=== PATIENT | female | born 1940 | race Caucasian/White ===

== ENCOUNTER 2020-11-06 10:47 | Emergency (ER) | payer OTHER, MEDICARE ==
--- NOTE | 2020-11-06 14:13 | EDPHYS ---
Physician Documentation [facility] Name: Lexie Robles Age: 80 yrs Sex: Female : 1940 Arrival Date: 11/06/2020 Time: 10:48 Bed 11 Private MD: aJmari Harrell T ED Physician Clive Castillo HPI: 11/06 14:10 This 80 yrs old Female presents to ER via Ambulatory with complaints of kb Vaginal Problem. 14:11 The patient presents with ball coming out of vagina. Onset: The symptoms/episode kb began/occurred 1 week(s) ago. Modifying factors: The symptoms are alleviated by nothing, the symptoms are aggravated by nothing. Associated signs and symptoms: The patient has no apparent associated signs or symptoms. Severity of symptoms: At their worst the symptoms were very mild, in the emergency department the symptoms are unchanged. The patient has not experienced similar symptoms in the past. The patient has not recently seen a physician. Pt states she felt a small ball, the size of a marble, coming out of vagina. States it goes back in on it's own. No pain, tenderness. . Historical: - Allergies: 11:26 No Known Allergies; hb - Immunization history:: Client reports receiving the 2nd dose of the Covid vaccine, Date received: May 15, 2020. - Social history:: Smoking status: Patient denies any tobacco usage or history of. ROS: 14:08 Constitutional: Negative for fever, chills, and weight loss. kb 14:08 : Positive for ball coming out of vagina intermittently for a week. 14:08 All other systems are negative. Exam: 14:10 Constitutional: This is a well developed, well nourished patient who is awake, alert, kb and in no acute distress. Head/Face: Normocephalic, atraumatic. ENT: Moist Mucous membranes Respiratory: Respirations even and unlabored. No increased work of breathing, no retractions or nasal flaring. Abdomen/GI: Soft, non-tender. No distention Female : Normal external genitalia. Skin: Warm, dry with normal turgor. Normal color. MS/ Extremity: Pulses equal, no cyanosis. Neurovascular intact. Full, normal range of motion. Neuro: Awake and alert, GCS 15, oriented to person, place, time, and situation. Moves all extremities. Normal gait. Psych: Awake, alert, with orientation to person, place and time. Behavior, mood, and affect are within normal limits. 14:10 Abdomen/GI: Rectal exam: swelling, is not appreciated, tenderness, is not appreciated, fecal impaction, is not appreciated, the exam is chaperoned by the nurse, rectal prolapse, able to reduce with ease and no pain. Vital Signs: 11:25 BP 142 / 85; Pulse 68; Resp 16; Temp 97.8; Pulse Ox 97% on R/A; Weight 58.51 kg; Height hb 5 ft. 1 in. (154.94 cm); Pain 0/10; 11:25 Body Mass Index 24.37 (58.51 kg, 154.94 cm) hb MDM: 13:41 Patient medically screened. kb 14:07 Data reviewed: vital signs, nurses notes. Data interpreted: Pulse oximetry: on room air kb is 97 %. Interpretation: normal. Counseling: I had a detailed discussion with the patient and/or guardian regarding: the historical points, exam findings, and any diagnostic results supporting the discharge/admit diagnosis, the need for outpatient follow up, a general surgeon, to return to the emergency department if symptoms worsen or persist or if there are any questions or concerns that arise at home. 11/06 13:42 Order name: Pelvic Exam Setup; Complete Time: 14:15 kb Administered Medications: No medications were administered Disposition: 11/07 07:45 Co-signature as Attending Physician, Clive Castillo MD I agree with the assessment and krishna plan of care. Disposition Summary: 11/06/20 14:12 Discharge Ordered Location: Home kb Condition: Stable kb Diagnosis - Rectal prolapse kb Followup: kb - With: Emergency Department - When: As needed - Reason: Worsening of condition Followup: kb - With: Private Physician - When: 2 - 3 days - Reason: Recheck today's complaints, Continuance of care, Re-evaluation by your physician Discharge Instructions: - Discharge Summary Sheet kb - Rectal Prolapse, Adult kb Forms: - Medication Reconciliation Form kb - Thank You Letter kb - Antibiotic Education kb - Prescription Opioid Use kb Signatures: Charlotte Daniel, DONATO FOREMAN-Clive Ignacio MD MD cha Baxter, Heather RN RN Corrections: (The following items were deleted from the chart) 11/06 11:27 11:26 Immunization history: Client reports receiving the 2nd dose of the Covid vaccine, hb hb
--- NOTE | 2020-11-06 14:13 | ER ---
Nurse's Notes [facility] Name: Lexie Robles Age: 80 yrs Sex: Female : 1940 Arrival Date: 11/06/2020 Time: 10:48 Bed 11 Private MD: Jamari Harrell T Diagnosis: Rectal prolapse Presentation: 11/06 11:25 Chief complaint: Painless lump the size of a marble near vagina x 1 week. Coronavirus hb screen: At this time, the client does not indicate any symptoms associated with coronavirus-19. Ebola Screen: No symptoms or risks identified at this time. Initial Sepsis Screen: Does the patient meet any 2 criteria? No. Patient's initial sepsis screen is negative. Does the patient have a suspected source of infection? No. Patient's initial sepsis screen is negative. Risk Assessment: Do you want to hurt yourself or someone else? Patient reports no desire to harm self or others. Onset of symptoms was October 30, 2020. 11:25 Method Of Arrival: Ambulatory hb 11:25 Acuity: RAYMOND 3 hb Historical: - Allergies: 11:26 No Known Allergies; hb - Immunization history:: Client reports receiving the 2nd dose of the Covid vaccine, Date received: May 15, 2020. - Social history:: Smoking status: Patient denies any tobacco usage or history of. Vital Signs: 11:25 BP 142 / 85; Pulse 68; Resp 16; Temp 97.8; Pulse Ox 97% on R/A; Weight 58.51 kg; Height hb 5 ft. 1 in. (154.94 cm); Pain 0/10; 11:25 Body Mass Index 24.37 (58.51 kg, 154.94 cm) hb ED Course: 10:48 Patient arrived in ED. as 10:48 Jamari Harrell MD is Private Physician. as 11:26 Triage completed. hb 11:26 Arm band placed on. hb 13:41 Charlotte Daniel FNP-C is PHCP. kb 13:41 Clive Castillo MD is Attending Physician. kb 14:15 Caro Jarquin, JOSEFINA is Primary Nurse. iw Administered Medications: No medications were administered Outcome: 14:12 Discharge ordered by . kb 14:25 Patient left the ED. iw Signatures: Charlotte Daniel FNP-C FNP-Mariella Garza as Caro Jarquin, RN RN iw Sarah Huggins RN RN hb Corrections: (The following items were deleted from the chart) 11:27 11:26 Immunization history: Client reports receiving the 2nd dose of the Covid vaccine, hb hb
[2020-11-06 14:29] VITALS: BP 142/85; TEMP 97.8; O2SAT 97
== END 2020-11-06 14:25 | disposition home or self-care (01) ==
LOC: ER 10:47
DX: K62.3 Rectal prolapse (principal)
CPT/HCPCS: 99281

== ENCOUNTER 2021-03-31 17:21 | Emergency (ER) | payer OTHER, MEDICARE ==
--- NOTE | 2021-03-31 18:03 | RAD REPORT ---
EXAM DESCRIPTION: CT - Head C Spine Mpr Wo Con - 03/31/2021 5:50 pm CLINICAL HISTORY: Head and neck injury status post fall. Head and neck pain COMPARISON: 2016 TECHNIQUE: Computed axial tomography of the head and cervical spine was obtained. Sagittal and coronal reconstruction was performed. All CT scans are performed using dose optimization technique as appropriate and may include automated exposure control or mA/KV adjustment according to patient size. FINDINGS: Right posterior scalp swelling. An intracranial bleed is not seen. The ventricles are normal in caliber. An extra-axial fluid collect ion is not noted.Fluid within the visualized sinuses and mastoids is not seen A cervical fracture is not visualized. No dislocation is noted. IMPRESSION: No acute intracranial abnormality is seen. A cervical fracture is not visualized. If the patient continues to have symptoms to suggest intracra nial /spinal cord pathology then MRI would be recommended
--- NOTE | 2021-03-31 18:55 | RAD REPORT ---
EXAM DESCRIPTION: Zheng Single View03/31/2021 6:42 pm CLINICAL HISTORY: Dizziness COMPARISON: 2016 FINDINGS: The lungs appear clear of acute infiltrate. The heart is normal size IMPRESSION: No acute abnormalities displayed
[2021-03-31 18:56] LABS: Absolute Lymphocytes (CBC) 1.3 K/uL (0.7-4.9); Hematocrit 38.9 % (36.0-45.0); Lymphocytes % 18.7 % (15.3-44.8); MPV 9.4 fL (7.6-11.3); RBC Red Blood Cell Count 4.19 M/uL (3.86-4.86)
[2021-03-31 19:05] LABS: Protime INR 1.01
[2021-03-31 19:16] LABS: ALT/SGPT 17 U/L (12-78); AST/SGOT 13 U/L (15-37); Albumin 3.2 g/dL (3.4-5.0); Alkaline Phosphatase 89 U/L (45-117); BUN Blood Urea Nitrogen 10 mg/dL (7-18); Bicarbonate 26 mmol/L (21-32); Bilirubin Direct < 0.1 mg/dL (0-0.2); Bilirubin Total 0.2 mg/dL (0.2-1.0); Glucose Level 79 mg/dL (74-106); Magnesium 2.1 mg/dL (1.8-2.4); NT PRO-BNP 361 pg/mL (<450); Protein, Total 6.8 g/dL (6.4-8.2); Sodium Level 139 mmol/L (136-145)
[2021-03-31 20:57] LABS: Urine Blood Negative (Negative); Urine Glucose Negative (Negative); Urine Protein Negative (Negative)
[2021-03-31 21:34] LABS: Urine Bacteria <20 /HPF (<20); Urine RBC <5 /HPF (NONE SEEN)
--- NOTE | 2021-03-31 21:39 | EDPHYS ---
Physician Documentation [facility] Name: Lexie Robles Age: 81 yrs Sex: Female : 1940 Arrival Date: 03/31/2021 Time: 17:24 Bed 19 Private MD: ED Physician Molina Awad HPI: 03/31 17:39 This 81 yrs old Female presents to ER via EMS with complaints of Fall Injury. pm1 17:39 Details of fall: The patient fell from an upright position, while standing, patient was pm1 putting on her jacket over her head and then she started stumbling backwards and fell down hitting the right side of her head on the floor. Patient is not complaining of pain to any other location. No neck pain, LOC. Onset: The symptoms/episode began/occurred just prior to arrival. Associated injuries: The patient sustained injury to the head, contusion, swelling. Severity of symptoms: in the emergency department the symptoms are unchanged. The patient has experienced similar episodes in the past, a few times, last fell about 1 month ago. Patient reports dizziness on and off for the past month. No dizziness before or after fall today. The patient has not recently seen a physician, the patient's primary care provider is Dr. Harrell. Historical: - Allergies: 18:58 No Known Allergies; bp - Immunization history:: Adult Immunizations up to date, Client reports receiving the 2nd dose of the Covid vaccine. - Social history:: Smoking status: unknown. ROS: 17:39 Constitutional: Negative for fever, chills, and weight loss, Cardiovascular: Negative pm1 for chest pain, palpitations, and edema, Respiratory: Negative for shortness of breath, cough, wheezing, and pleuritic chest pain, Abdomen/GI: Negative for abdominal pain, nausea, vomiting, diarrhea, and constipation, Back: Negative for injury and pain, MS/Extremity: Negative for injury and deformity, Skin: Negative for injury, rash, and discoloration. 17:39 Neuro: Positive for headache, Negative for numbness, tingling, weakness. 17:39 All other systems are negative. Exam: 17:39 Constitutional: This is a well developed, well nourished patient who is awake, alert, pm1 and in no acute distress. Head/Face: Normocephalic, atraumatic. 17:39 Back: No spinal tenderness. No costovertebral tenderness. Full range of motion. Skin: Warm, dry with normal turgor. Normal color with no rashes, no lesions, and no evidence of cellulitis. MS/ Extremity: Pulses equal, no cyanosis. Neurovascular intact. Full, normal range of motion. 17:39 Head/face: Noted is no obvious of injury or deformity except contusion, that is superficial, of the right side of the back of head. 17:39 Eyes: Exam is negative for acute changes, Periorbital structures: appear normal, Extraocular movements: no acute changes. 17:39 ENT: Exam is negative for acute changes, TM's: no acute changes, Mouth: no acute changes, Lips: normal, moist, Oral mucosa: normal, pink and intact, moist. 17:39 Cardiovascular: Exam negative for acute changes, Rate: normal, Rhythm: regular, Pulses: no pulse deficits are appreciated. 17:39 Respiratory: Exam negative for acute changes, respiratory distress, shortness of breath, Breath sounds: are clear throughout. 17:39 Neuro: Exam negative for acute changes, Orientation: is normal, Mentation: is normal, Motor: moves all fours. Vital Signs: 17:31 BP 149 / 63; Pulse 65; Resp 18; Temp 98.4; Pulse Ox 100% ; Pain 4/10; cb5 18:30 BP 131 / 63; Pulse 66; Resp 19; Pulse Ox 99% ; bp 20:03 BP 123 / 68; Pulse 67; Resp 17 S; Pulse Ox 98% on R/A; lg3 21:58 BP 153 / 59; Pulse 68; Resp 18 S; Pulse Ox 99% on R/A; Pain 0/10; lg3 MDM: 17:36 Patient medically screened. pm1 21:34 Data reviewed: vital signs. Counseling: I had a detailed discussion with the patient pm1 and/or guardian regarding: the historical points, exam findings, and any diagnostic results supporting the discharge/admit diagnosis, lab results, radiology results, the need for outpatient follow up, pending urine microscopy. Patient does not report any urinary symptoms except for last night some burning with urination. 03/31 17:37 Order name: Basic Metabolic Panel; Complete Time: 19:17 pm1 03/31 17:37 Order name: CBC with Diff; Complete Time: 19: pm03/31 17:37 Order name: LFT's; Complete Time: 19:17 pm1 03/31 17:37 Order name: Magnesium; Complete Time: 19:17 pm03/31 17:37 Order name: NT PRO-BNP; Complete Time: 19:17 pm03/31 17:37 Order name: PT-INR; Complete Time: 19:17 pm1 03/31 17:37 Order name: CT Head C Spine; Complete Time: 18:30 pm03/31 17:37 Order name: Troponin HS; Complete Time: 19:17 pm03/31 17:37 Order name: XRAY Chest (1 view); Complete Time: 19:01 pm1 03/31 17:37 Order name: EKG; Complete Time: 17:38 pm03/31 17:37 Order name: Cardiac monitoring; Complete Time: 17:44 pm1 03/31 17:37 Order name: EKG - Nurse/Tech; Complete Time: 18:11 pm03/31 20:57 Order name: Urine Dipstick-Ancillary; Complete Time: 20:57 EDMS 03/31 20:58 Order name: Urine Microscopic Only; Complete Time: 21:38 pm1 03/31 17:37 Order name: IV Saline Lock; Complete Time: 18:40 pm03/31 17:37 Order name: Labs collected and sent; Complete Time: 18:40 pm03/31 17:37 Order name: O2 Per Protocol; Complete Time: 17:43 pm1 03/31 17:37 Order name: O2 Sat Monitoring; Complete Time: 17:43 pm03/31 20:51 Order name: Urine Dipstick-Ancillary (obtain specimen); Complete Time: 20:51 lg3 Administered Medications: No medications were administered Disposition: 04/01 07:00 Co-signature as Attending Physician, Molina Awad MD. rn Disposition Summary: 03/31/21 21:39 Discharge Ordered Location: Home pm1 Problem: new pm1 Symptoms: have improved pm1 Condition: Stable pm1 Diagnosis - Fall on same level, unspecified pm1 - Contusion of unspecified part of head pm1 Followup: pm1 - With: Emergency Department - When: As needed - Reason: Worsening of condition Followup: pm1 - With: Private Physician - When: 2 - 3 days - Reason: Recheck today's complaints, Continuance of care, Re-evaluation by your physician Discharge Instructions: - Discharge Summary Sheet pm1 - Facial or Scalp Contusion pm1 - Fall Prevention in the Home, Adult pm1 Forms: - Medication Reconciliation Form pm1 - Thank You Letter pm1 - Antibiotic Education pm1 - Prescription Opioid Use pm1 Signatures: Dispatcher [employer] EDMS Molina Awad MD MD rn Marinas, Patrick, NP SENIOR BUSINESS DEVELOPMENT ANALYST pm1 Rj Webber RN RN Herminia Hackett RN RN lg3 Sepideh Ware RN RN cb5
--- NOTE | 2021-03-31 21:39 | ER ---
Nurse's Notes [facility] Name: Lexie Robles Age: 81 yrs Sex: Female : 1940 Arrival Date: 03/31/2021 Time: 17:24 Bed 19 Private MD: Diagnosis: Fall on same level, unspecified;Contusion of unspecified part of head Presentation: 03/31 17:29 Chief complaint: Patient states: fell backwards when she was putting her jacket on and cb5 hit back of head. Mechanism of Injury: Fall. 17:29 Acuity: RAYMOND 3 cb5 17:29 Method Of Arrival: EMS: [facility] cb5 22:00 Coronavirus screen: Vaccine status: Patient reports receiving the 2nd dose of the covid lg3 vaccine. Client denies travel out of the [place] in the last 14 days. At this time, the client does not indicate any symptoms associated with coronavirus-19. Ebola Screen: No symptoms or risks identified at this time. Initial Sepsis Screen: Does the patient meet any 2 criteria? No. Patient's initial sepsis screen is negative. Does the patient have a suspected source of infection? No. Patient's initial sepsis screen is negative. Risk Assessment: Do you want to hurt yourself or someone else? Patient reports no desire to harm self or others. Onset of symptoms. Triage Assessment: 17:30 General: Appears in no apparent distress. comfortable, well groomed, well nourished, cb5 Behavior is calm, cooperative, appropriate for age. Pain: Complains of pain in back of head Pain currently is 4 out of 10 on a pain scale. Respiratory: No deficits noted. Injury Description: swelling to posterior head, skin intact, redness to site. Historical: - Allergies: 18:58 No Known Allergies; bp - Immunization history:: Adult Immunizations up to date, Client reports receiving the 2nd dose of the Covid vaccine. - Social history:: Smoking status: unknown. Screenin:58 Abuse screen: Denies threats or abuse. Denies injuries from another. Nutritional bp screening: No deficits noted. Tuberculosis screening: No symptoms or risk factors identified. Fall Risk None identified. Assessment: 17:30 General: SEE TRIAGE NOTE. bp 20:00 Reassessment: Patient appears in no apparent distress at this time. No changes from lg3 previously documented assessment. Patient and/or family updated on plan of care and expected duration. Pain level reassessed. Patient is alert, oriented x 3, equal unlabored respirations, skin warm/dry/pink. General: Appears in no apparent distress. comfortable, Behavior is calm, cooperative. Pain: Denies pain. Neuro: Level of Consciousness is awake, alert, obeys commands, Oriented to person, place, time, situation. Cardiovascular: Capillary refill < 3 seconds JVD is absent Patient's skin is warm and dry. Respiratory: Airway is patent Trachea midline Respiratory effort is even, unlabored, Respiratory pattern is regular, symmetrical. GI: No deficits noted. No signs and/or symptoms were reported involving the gastrointestinal system. : No deficits noted. No signs and/or symptoms were reported regarding the genitourinary system. EENT: No deficits noted. No signs and/or symptoms were reported regarding the EENT system. Derm: No deficits noted. No signs and/or symptoms reported regarding the dermatologic system. Skin is intact, is healthy with good turgor, Skin is dry. Musculoskeletal: No deficits noted. Circulation, motion, and sensation intact. Range of motion: intact in all extremities. Vital Signs: 17:31 BP 149 / 63; Pulse 65; Resp 18; Temp 98.4; Pulse Ox 100% ; Pain 4/10; cb5 18:30 BP 131 / 63; Pulse 66; Resp 19; Pulse Ox 99% ; bp 20:03 BP 123 / 68; Pulse 67; Resp 17 S; Pulse Ox 98% on R/A; lg3 21:58 BP 153 / 59; Pulse 68; Resp 18 S; Pulse Ox 99% on R/A; Pain 0/10; lg3 ED Course: 17:24 Patient arrived in ED. bp 17:24 Rj Webber, JOSEFINA is Primary Nurse. bp 17:27 Roberto Presley, MISTY is PHCP. pm1 17:27 Molina Awad MD is Attending Physician. pm1 17:29 Triage completed. cb5 17:49 CT Head C Spine In Process Unspecified. EDMS 18:12 Patient has correct armband on for positive identification. Bed in low position. Call mh5 light in reach. Side rails up X2. Adult w/ patient. Warm blanket given. youth nutritional monitor on. Pulse ox on. NIBP on. 18:12 EKG done, by ED staff, reviewed by Roberto Presley DEVELOPER SUPPORT ENGINEER. 5 18:15 Maintain EMS IV. Dressing intact. Good blood return noted. Site clean \T\ dry. Gauge \T\ bp site: 20 GAUGE R AC. 18:42 XRAY Chest (1 view) In Process Unspecified. EDMS 21:29 Urine Microscopic Only Sent. lg3 21:59 No provider procedures requiring assistance completed. IV discontinued, intact, lg3 bleeding controlled, Pressure dressing applied. 22:00 Arm band placed on right wrist. lg3 Administered Medications: No medications were administered Outcome: 21:39 Discharge ordered by . pm1 21:59 Discharged to home via wheelchair, with family. lg3 21:59 Condition: stable 21:59 Discharge instructions given to patient, Instructed on discharge instructions, follow up and referral plans. safety practices. 22:09 Patient left the ED. lg3 Signatures: Dispatcher [employer] EDME Roberto Presley, MISTY DEVELOPER SUPPORT ENGINEER pm1 Henrietta Aj 5 Rj Webber, RN RN bp Herminia Loyd, JOSEFINA RN lg3 Sepideh Ware, RN RN cb5
[2021-03-31 22:19] VITALS: TEMP 98.4
[2021-03-31 22:23] VITALS: BP 153/59; O2SAT 99
--- NOTE | 2021-04-02 08:06 | EKG ---
Test Date: 2021-03-31 Test Time: 18:25:55 Guard Rail Installer: UDAY MEASUREMENT RESULTS: Intervals: Rate: 61 MN: 170 QRSD: 88 QT: 416 QTc: 418 [place]: P: 58 MN: 170 QRS: -32 T: 55 INTERPRETIVE STATEMENTS: Normal sinus rhythm Left axis deviation Inferior infarct, age undetermined Anterior infarct, age undetermined Abnormal ECG No previous ECG available for comparison Electronically Signed On 04-02-21 08:03:12 FILM SOUND ENGINEER by Kristian Rehman
== END 2021-03-31 22:09 | disposition home or self-care (01) ==
LOC: ER 17:21
DX: S00.83XA Contusion of other part of head, initial encounter (principal); W18.39XA Other fall on same level, initial encounter
CPT/HCPCS: 36415; 70450; 71045; 72125; 80048; 80076; 81003; 81015; 83735; 83880; 84484; 85025; 85610; 93005; 99284

== ENCOUNTER 2024-11-23 19:34 | Emergency (ER) | payer OTHER, MEDICARE ==
[2024-11-23] MEDS ORDERED: FAMOTIDINE 20 MG/2 ML VIAL IV ONE (19:48)
[2024-11-23] MEDS ORDERED: NA CHLORIDE 0.9% 1,000 ML ONE ×2 (19:48→20:28)
[2024-11-23] MEDS ORDERED: ONDANSETRON 4 MG/2 ML VIAL ONE (19:48)
[2024-11-23] MEDS ORDERED: METOCLOPRAMIDE 10 MG/2mL INJ ONE (20:00)
[2024-11-23 20:06] LABS: Absolute Lymphocytes (CBC) 0.3 K/uL (0.7-4.9); Hematocrit 38.0 % (36.0-45.0); Hemoglobin 12.8 g/dL (12.0-15.0); MCH 30.6 pg (27.0-35.0); MCHC 33.7 g/dL (32.0-36.0); MCV 90.9 fL (80-100); MPV 9.1 fL (7.6-11.3); Nucleated Red Blood Cells % 0.0 % (0-0); RBC Red Blood Cell Count 4.17 M/uL (3.86-4.86); White Blood Count 9.20 thou/uL (4.3-10.9)
[2024-11-23 20:07] LABS: Nucleated RBC Absolute Count 0.0 (0-0)
[2024-11-23 20:23] LABS: Influenza A Ag Negative; Influenza B Ag Negative; SARS-CoV-2 Antigen Rapid Res Negative (Negative)
[2024-11-23 20:37] LABS: ALT/SGPT 621.0 U/L (13-56); AST/SGOT 1245.0 U/L (15-37); Albumin 3.3 g/dL (3.4-5.0); Albumin/Globulin Ratio 1.0 (1.1-1.8); Alkaline Phosphatase 128.0 U/L (45-117); Anion Gap 14.5 mEq/L (5.0-15.0); BUN Blood Urea Nitrogen 11.0 mg/dL (7-18); Globulin 3.4 g/dL (2.3-3.5); Glucose Level 152.0 mg/dL (74-106); Lipase 47.0 U/L (13-75); Potassium 3.5 mEq/L (3.5-5.1); Thyroid Stimulating Hormone 0.409 uIU/mL (0.358-3.740)
[2024-11-23 20:41] LABS: Blood Morphology Comment NOT SEEN (NOT SEEN); White Blood Cell Scan OK (OK)
[2024-11-23 21:14] LABS: Urine Microscopic Reflex YN NO UMIC
--- NOTE | 2024-11-23 21:34 | RAD REPORT ---
EXAMINATION: CT ABDOMEN AND PELVIS WITH CONTRAST CLINICAL INDICATION: left lower abdominal pain TECHNIQUE: CT abdomen and pelvis was performed, after the administration of IV contrast, as per [facility] protocol. Axial, sagittal and coronal reconstructions were obtained. One or more of the following dose reduction techniques were used: Automated exposure control, adjustment of the mA and k V according to patient size, and iterative reconstruction. Unless otherwise specified, incidental findings do not require dedicated imaging follow-up. COMPARISON: 09/04/2015 FINDINGS: LOWER CHEST: Tiny nodules are seen in the right lower lung. Small hiatal hernia. LIVER: Normal in size and contour. No focal lesion. Cholelithiasis. SPLEEN: Normal size. No focal lesion. PANCREAS: No mass, ductal dilation, or parth-pancreatic fluid. ADRENALS: Normal; no mass. KIDNEYS: Normal size and contour. No hydronephrosis. GASTROINTESTINAL TRACT: No evidence of free air, significant intra-abdominal free fluid, bowel obstru ction or abscess. There is advanced sigmoid and descending colon diverticulosis without diverticulitis. APPENDIX: Normal appendix. LYMPH NODES: No lymphadenopathy. MUSCULOSKELETAL: No acute or suspicious osseous abnormality. IMPRESSION: Prominent descending and sigmoid colon diverticulosis coli without diverticulitis. Follow-up colonosc opy may be considered a nonemergent basis to better visualize directly. Cholelithiasis.
[2024-11-23] MEDS ORDERED: PROMETHAZINE INJ 25 MG/ML AMP ONE (21:56)
--- NOTE | 2024-11-23 22:28 | RAD REPORT ---
EXAM: Right upper quadrant ultrasound. CLINICAL HISTORY: ABD PAIN COMPARISON: None. FINDINGS: Gallbladder: Multiple shadowing gallstones. Gall bladder wall upper limit of normal. Bile ducts: No intrahepatic or extrahepatic biliary dilatation. Common bile duct measures 3 mm. Limited imaging of the liver shows no concerning finding. IMPRESSION: Cholelithiasis.
[2024-11-23] MEDS ORDERED: LORAZEPAM 1 MG TABLET ONE (23:06)
--- NOTE | 2024-11-23 23:09 | EDPHYS ---
Physician Documentation [facility] Name: Lexie Robles Age: 84 yrs Sex: Female : 1940 Arrival Date: 11/23/2024 Time: 19:34 Bed 19 Private MD: ED Physician Arslan Hernandez HPI: 11/23 19:39 This 84 yrs old Female presents to ER via Unassigned with complaints of sp4 Nausea/Vomiting. Historical: - Allergies: 19:40 No Known Allergies; me1 - PMHx: 19:40 Hypothyroidism; Anxiety; me1 20:03 Diverticulitis; prolapsed rectum; me1 - PSHx: 19:40 Thyroidectomy; me1 - Immunization history:: Adult Immunizations up to date. - Infectious Disease History:: Denies. - Social history:: Smoking status: Patient denies any tobacco usage or history of. ROS: 11/24 00:05 Constitutional: Negative for fever, chills, and weight loss, positive for nausea or sp4 vomiting. All other systems are negative, Exam: 00:03 Constitutional: Patient is actively vomiting, frail elderly female, moderate sp4 distress, nontoxic Head/Face: Normocephalic, atraumatic. Eyes: Pupils equal round and reactive to light, extra-ocular motions intact. Lids and lashes normal. Conjunctiva and sclera are not injected. Cornea within normal limits. Periorbital areas with no swelling, redness, or edema. ENT: Nares patent. No nasal discharge, no septal abnormalities noted. Tympanic membranes are normal and external auditory canals are clear. Oropharynx with no redness, swelling, or masses, exudates, or evidence of obstruction, uvula midline. Mucous membranes moist. Neck: Trachea midline, no thyromegaly or masses palpated, and no cervical lymphadenopathy. Supple, full range of motion without nuchal rigidity, or vertebral point tenderness. Chest/axilla: Normal chest wall appearance and motion. Nontender with no deformity. No lesions are appreciated. Cardiovascular: Regular rate and rhythm with a normal S1 and S2. No gallops, murmurs, or rubs. No pulse deficits. Respiratory: Lungs have equal breath sounds bilaterally, clear to auscultation and percussion. No rales, rhonchi or wheezes noted. No increased work of breathing, no retractions or nasal flaring. Abdomen/GI: Soft, with normal bowel sounds. No distension or tympany. No guarding or rebound. No evidence of tenderness throughout. Back: No spinal tenderness. No costovertebral tenderness. Skin: Warm, dry with normal turgor. Normal color with no rashes, no lesions, and no evidence of cellulitis. MS/ Extremity: Pulses equal, no cyanosis. Neurovascular intact. Full, normal range of motion. Neuro: Awake and alert, GCS 15, oriented to person, place, time, and situation. Cranial nerves II-XII grossly intact. Motor strength 5/5 in all extremities. Sensory grossly intact. Psych: Awake, alert, with orientation to person, place and time. Behavior, mood, and affect are within normal limits 00:03 ECG was reviewed by the Attending Physician. EKG 2347 normal sinus rhythm rate 76 overall normal EKG. 00:03 Abdomen/GI: Rectal exam reveals small to moderate rectal prolapse which was reducible on examination. No sign of melena or bright red blood per rectum., Vital Signs: 11/23 19:38 BP 154 / 53; Pulse 86; Resp 17; Temp 98.7; Pulse Ox 94% ; Weight 63.5 kg; Height 5 ft. me1 0 in. ; 20:00 BP 132 / 51; Pulse 82; Resp 16; Pulse Ox 94% ; me1 21:00 BP 136 / 66; Pulse 84; Resp 15; Pulse Ox 97% ; me1 22:00 BP 145 / 59; Pulse 87; Resp 15; Pulse Ox 93% on R/A; me1 22:18 BP 151 / 60; Pulse 76; Resp 17; Temp 98.7; Pulse Ox 96% ; Pain 0/10; bm8 23:09 BP 147 / 58; Pulse 82; Resp 17; Temp 98.7; Pulse Ox 96% on 2 lpm NC; Pain 0/10; bm8 11/24 00:04 BP 126 / 66; Pulse 76; Resp 17; Temp 98.5; Pulse Ox 97% on 2 lpm NC; Pain 0/10; bm8 11/23 19:38 Body Mass Index 27.34 (63.50 kg, 152.4 cm) me1 22:18 Pain Scale: Adult bm8 23:09 Pain Scale: Adult bm8 11/24 00:04 Pain Scale: Adult bm8 Yonathan Coma Score: 11/23 22:18 Eye Response: spontaneous(4). Motor Response: obeys commands(6). Verbal Response: bm8 oriented(5). Total: 15. 23:09 Eye Response: spontaneous(4). Motor Response: obeys commands(6). Verbal Response: bm8 oriented(5). Total: 15. 11/24 00:03 Eye Response: spontaneous(4). Motor Response: obeys commands(6). Verbal Response: sp4 oriented(5). Total: 15. 00:04 Eye Response: to voice(3). Motor Response: obeys commands(6). Verbal Response: bm8 oriented(5). Total: 14. MDM: 11/23 19:43 Medical Screening Exam initiated sp4 22:22 ED course: COMPARISON: 09/04/2015 FINDINGS: LOWER CHEST: Tiny nodules are seen in the sp4 right lower lung. Small hiatal hernia. LIVER: Normal in size and contour. No focal lesion. Cholelithiasis. SPLEEN: Normal size. No focal lesion. PANCREAS: No mass, ductal dilation, or parth-pancreatic fluid. ADRENALS: Normal; no mass. KIDNEYS: Normal size and contour. No hydronephrosis. GASTROINTESTINAL TRACT: No evidence of free air, significant intra-abdominal free fluid, bowel obstruction or abscess. There is advanced sigmoid and descending colon diverticulosis without diverticulitis. APPENDIX: Normal appendix. LYMPH NODES: No lymphadenopathy. MUSCULOSKELETAL: No acute or suspicious osseous abnormality. IMPRESSION: Prominent descending and sigmoid colon diverticulosis coli without diverticulitis. Follow-up colonoscopy may be considered a nonemergent basis to better visualize directly. Cholelithiasis. . 23:03 ED course: EXAM: Right upper quadrant ultrasound. CLINICAL HISTORY: ABD PAIN sp4 COMPARISON: None. FINDINGS: Gallbladder: Multiple shadowing gallstones. Gall bladder wall upper limit of normal. Bile ducts: No intrahepatic or extrahepatic biliary dilatation. Common bile duct measures 3 mm. Limited imaging of the liver shows no concerning finding. IMPRESSION: Cholelithiasis. . 11/24 00:05 Differential diagnosis: Nonspecific abd pain, gastritis, cholecystitis, pancreatitis, sp4 diverticulitis, viral gastroenteritis, gastroenteritis. Data reviewed: vital signs, nurses notes, EMS record, lab test result(s), EKG, radiologic studies, CT scan, plain films. Consideration of Admission/Observation Escalation of care including admission/observation considered. ED course: Patient stable for transfer to [facility] for further evaluation for acute hepatitis and transaminitis.. 11/23 19:40 Order name: CBC with Diff; Complete Time: 21:37 [facility] 11/23 19:40 Order name: CMP; Complete Time: 21:37 sp 11/23 19:40 Order name: Lipase; Complete Time: 21:37 [facility] 11/23 19:40 Order name: UA Rfx Luis Antonio Cult if indicated; Complete Time: 21:37 [facility] 11/23 19:43 Order name: COVID-19 Ag + Flu A+B Ag; Complete Time: 21:37 [facility] 11/23 20:06 Order name: T4 Free; Complete Time: 21:37 EDDC 11/23 20:06 Order name: Thyroid Stimulating Hormone; Complete Time: 21:37 EDDC 11/23 20:42 Order name: CBC Smear Scan; Complete Time: 21:37 EDDC 11/23 22:53 Order name: Hepatitis Panel [facility] 11/23 23:30 Order name: Troponin High Sensitivity [facility] 11/23 19:59 Order name: CT Abd/Pelvis - IV Contrast Only; Complete Time: 21:37 [facility] 11/23 21:47 Order name: US Abdomen Limited; Complete Time: 22:52 [facility] 11/23 23:30 Order name: EKG; Complete Time: 23:31 [facility] 11/23 19:40 Order name: IV Saline Lock; Complete Time: 19:59 4 11/23 19:40 Order name: Labs collected and sent; Complete Time: 19:59 [facility] 11/23 21:55 Order name: NPO; Complete Time: 21:55 [facility] 11/23 23:30 Order name: EKG - Nurse/Tech; Complete Time: 23:52 sp4 EC/16 23:47 Rate is 76 beats/min. Rhythm is regular, Normal Sinus Rhythm. QRS [place] is Normal. [place] sp4 interval is normal. QRS interval is normal. QT interval is normal. No Q waves. T waves are Normal. No ST changes noted. Clinical impression: No evidence of ischemia. Interpreted by me. Reviewed by me. Administered Medications: 19:58 Drug: Ondansetron IVP 8 mg IVP once; over 2 minutes {Note: given zofran 4 mg by EMS. .} me1 Route: IVP; Site: left antecubital; 20:15 Follow up: Response: No adverse reaction; Nausea unchanged me1 20:03 Drug: Famotidine IVP 20 mg IVP once; dilute with 10 mL 0.9% NaCl; give over 2 minutes me1 Route: IVP; Site: left antecubital; 20:16 Follow up: Response: No adverse reaction me1 20:03 Drug: NS 0.9% IV 1000 ml IV at 1 bolus Per protocol; to be given as a bolus over 60 me1 minutes Route: IV; Rate: 1 bolus; Site: left antecubital; 20:39 Follow up: Response: No adverse reaction; IV Status: Completed infusion; IV Intake: me1 1000ml 20:15 Drug: metoCLOPramide IVP 10 mg IVP once; over 1 to 2 minutes Route: IVP; Site: left me1 antecubital; 20:39 Follow up: Response: No adverse reaction; Nausea is decreased me1 20:39 Drug: NS 0.9% IV 1000 ml IV at 100 ml/hr once; to be given at 100 ml/hour Route: IV; me1 Rate: 100 ml/hr; Site: left antecubital; 22:25 Follow up: Response: No adverse reaction; IV Status: Completed infusion bm8 22:00 Drug: Promethazine IM 25 mg IM once Route: IM; Site: left deltoid; me1 22:24 Follow up: Response: No adverse reaction bm8 23:08 Drug: LORazepam PO 1 mg PO once Route: PO; bm8 23:52 Follow up: Response: No adverse reaction zm Disposition Summary: 11/23/24 23:08 Transfer Ordered Notes: Transfer Location: [facility] sp4 Reason: Higher level of care sp4 Condition: Stable sp4 Problem: new sp4 Symptoms: have improved sp4 Accepting Physician: [facility]'s attending MD(11/24/24 00:44) bm8 Diagnosis - Lower abdominal pain, unspecified sp4 - Autoimmune hepatitis sp4 - Acute hepatitis sp4 Forms: - Medication Reconciliation Form sp4 - SBAR form sp4 Signatures: Dispatcher [employer] EDDC Arslan Hernandez MD MD sp4 Milagro Butterfield, RN RN me1 Osman Santos RN RN bm8 Edyta Aj RN zm Corrections: (The following items were deleted from the chart) 20:05 19:43 THYROID STIMULAT HORMONE+C.LAB.BRZ ordered. EDMS EDMS 20:05 19:43 T4 FREE+C.LAB.BRZ ordered. EDDC EDDC 11/24 00:06 00:05 ED course: Patient stable to discharge for acute hepatitis and transaminitis.. sp4sp4 00:44 11/23 23:08 [facility] attending MD [email or web address] bm8
--- NOTE | 2024-11-23 23:09 | ER ---
Nurse's Notes [facility] Name: Lexie Robles Age: 84 yrs Sex: Female : 1940 Arrival Date: 11/23/2024 Time: 19:34 Bed 19 Private MD: Diagnosis: Lower abdominal pain, unspecified;Autoimmune hepatitis;Acute hepatitis Presentation: 11/23 19:38 Chief complaint: EMS states: toned out for sudden onset of n/v and fever and chills, me1 started about 16:30 today. Coronavirus screen: Vaccine status: Patient reports receiving the 2nd dose of the covid vaccine. Ebola Screen: No symptoms or risks identified at this time. Initial Sepsis Screen: Does the patient meet any 2 criteria? No. Patient's initial sepsis screen is negative. Does the patient have a suspected source of infection? No. Patient's initial sepsis screen is negative. Risk Assessment: Do you want to hurt yourself or someone else? Patient reports no desire to harm self or others. Onset of symptoms was November 23, 2024 at 16:30. 19:38 Method Of Arrival: EMS: [facility] ar1 19:38 Acuity: RAYMOND 3 me1 Triage Assessment: 19:40 General: Appears ill, well groomed, well developed, well nourished, Behavior is calm, me1 cooperative, appropriate for age, Reports n/v with fever and chills that started today about 16:30. Pain: Denies pain. EENT: No signs and/or symptoms were reported regarding the EENT system. Neuro: Level of Consciousness is awake, alert, obeys commands, Oriented to person, place, time, situation, Appropriate for age. Cardiovascular: Patient's skin is warm and dry. Respiratory: Airway is patent Respiratory effort is even, unlabored, Respiratory pattern is regular, symmetrical. GI: Pt is actively vomiting undigested food, Reports nausea, vomiting, since 16:30. : No signs and/or symptoms were reported regarding the genitourinary system. Derm: Skin is intact, is healthy with good turgor, Skin is pink, warm \T\ dry. Musculoskeletal: Circulation, motion, and sensation intact. Range of motion: intact in all extremities. Historical: - Allergies: 19:40 No Known Allergies; me1 - PMHx: 19:40 Hypothyroidism; Anxiety; me1 20:03 Diverticulitis; prolapsed rectum; me1 - PSHx: 19:40 Thyroidectomy; me1 - Immunization history:: Adult Immunizations up to date. - Infectious Disease History:: Denies. - Social history:: Smoking status: Patient denies any tobacco usage or history of. Screenin:40 [facility] ED Fall Risk Assessment (Adult) History of falling in the last 3 months, me1 including since admission No falls in past 3 months (0 pts) Confusion or Disorientation No (0 pts) Intoxicated or Sedated No (0 pts) Impaired Gait No (0 pts) Mobility Assist Device Used No (0 pt) Altered Elimination No (0 pt) Score/Fall Risk Level 0 - 2 = Low Risk Maintained a safe environment, Provided non-skid footwear, Hourly rounding (assess needs \T\ fall precautionary measures) done. Abuse screen: Denies threats or abuse. Nutritional screening: No deficits noted. Tuberculosis screening: No symptoms or risk factors identified. Assessment: 19:40 General: See triage assessment. GI: Reports nausea, vomiting. me1 22:18 Reassessment: Patient appears in no apparent distress at this time. Patient and/or bm8 family updated on plan of care and expected duration. Pain level reassessed. Patient is alert, oriented x 3, equal unlabored respirations, skin warm/dry/pink. Patient denies pain at this time. General: Appears in no apparent distress. comfortable, Behavior is calm, cooperative, appropriate for age. Pain: Denies pain. Neuro: No deficits noted. Level of Consciousness is awake, alert, obeys commands, Oriented to person, place, time, situation, Appropriate for age. Cardiovascular: Denies chest pain. Respiratory: Airway is patent Respiratory effort is even, unlabored, Respiratory pattern is regular, symmetrical. GI: Reports Patient currently denies nausea, vomiting, at this time. : No signs and/or symptoms were reported regarding the genitourinary system. EENT: No deficits noted. No signs and/or symptoms were reported regarding the EENT system. Derm: No deficits noted. No signs and/or symptoms reported regarding the dermatologic system. Musculoskeletal: No deficits noted. No signs and/or symptoms reported regarding the musculoskeletal system. 22:18 Reassessment: Pt is currently resting with eyes closed breathing is even unlabored with bm8 symmetrical rise and fall of chest, family at bedside. 23:09 Reassessment: Patient appears in no apparent distress at this time. No changes from bm8 previously documented assessment. Patient and/or family updated on plan of care and expected duration. Pain level reassessed. Patient is alert, oriented x 3, equal unlabored respirations, skin warm/dry/pink. 11/24 00:04 Reassessment: Patient appears in no apparent distress at this time. No changes from bm8 previously documented assessment. Patient and/or family updated on plan of care and expected duration. Pain level reassessed. Patient is alert, oriented x 3, equal unlabored respirations, skin warm/dry/pink. [facility] Vital Signs: 11/23 19:38 BP 154 / 53; Pulse 86; Resp 17; Temp 98.7; Pulse Ox 94% ; Weight 63.5 kg; Height 5 ft. me1 0 in. ; 20:00 BP 132 / 51; Pulse 82; Resp 16; Pulse Ox 94% ; me1 21:00 BP 136 / 66; Pulse 84; Resp 15; Pulse Ox 97% ; me1 22:00 BP 145 / 59; Pulse 87; Resp 15; Pulse Ox 93% on R/A; me1 22:18 BP 151 / 60; Pulse 76; Resp 17; Temp 98.7; Pulse Ox 96% ; Pain 0/10; bm8 23:09 BP 147 / 58; Pulse 82; Resp 17; Temp 98.7; Pulse Ox 96% on 2 lpm NC; Pain 0/10; bm8 11/24 00:04 BP 126 / 66; Pulse 76; Resp 17; Temp 98.5; Pulse Ox 97% on 2 lpm NC; Pain 0/10; bm8 11/23 19:38 Body Mass Index 27.34 (63.50 kg, 152.4 cm) me1 22:18 Pain Scale: Adult bm8 23:09 Pain Scale: Adult bm8 11/24 00:04 Pain Scale: Adult bm8 Lincoln Coma Score: 11/23 22:18 Eye Response: spontaneous(4). Motor Response: obeys commands(6). Verbal Response: bm8 oriented(5). Total: 15. 23:09 Eye Response: spontaneous(4). Motor Response: obeys commands(6). Verbal Response: bm8 oriented(5). Total: 15. 11/24 00:03 Eye Response: spontaneous(4). Motor Response: obeys commands(6). Verbal Response: sp4 oriented(5). Total: 15. 00:04 Eye Response: to voice(3). Motor Response: obeys commands(6). Verbal Response: bm8 oriented(5). Total: 14. ED Course: 11/23 19:38 Patient arrived in ED. vk 19:38 Milagro Butterfield RN is Primary Nurse. me1 19:39 Arslan Hernandez MD is Attending Physician. sp4 19:40 Triage completed. me1 19:40 Arm band placed on Patient placed in an exam room. me1 19:40 Patient has correct armband on for positive identification. Bed in low position. Call me1 light in reach. Side rails up X2. Provided Education on: POC. Verbalized understanding.. Client placed on continuous cardiac and pulse oximetry monitoring. NIBP monitoring applied. Pulse ox on. NIBP on. Warm blanket given. 19:40 No provider procedures requiring assistance completed. me1 19:58 Initial lab(s) drawn, by me, sent to lab. COVID swab sent to lab. Maintain EMS IV. me1 Dressing intact. Good blood return noted. Site clean \T\ dry. Gauge \T\ site: 20g LAC. 19:59 CBC with Diff Sent. me1 19:59 CMP Sent. me1 19:59 Lipase Sent. me1 20:02 Radiology exam delayed due to lab results not completed at this time. (BUN/Creatinine) jc4 IV insertion attempt and/or patient not having appropriate IV at this time. 21:06 UA Rfx Luis Antonio Cult if indicated Sent. me1 21:06 Urine collected: straight cath specimen, clear. me1 21:21 CT Abd/Pelvis - IV Contrast Only In Process Unspecified. EDMS 22:00 Report received from JOSEFINA Humphrey. bm8 22:13 US Abdomen Limited In Process Unspecified. EDMS 22:58 initiated transfer with [facility]. vk 23:30 Patient was accepted to [facility] to Dr. Damian to Rm 721 accepting admin ladarius clark 11/24 00:43 Patient transferred, IV remains in place. bm8 Administered Medications: 11/23 19:58 Drug: Ondansetron IVP 8 mg IVP once; over 2 minutes {Note: given zofran 4 mg by EMS. .} me1 Route: IVP; Site: left antecubital; 20:15 Follow up: Response: No adverse reaction; Nausea unchanged me1 20:03 Drug: Famotidine IVP 20 mg IVP once; dilute with 10 mL 0.9% NaCl; give over 2 minutes me1 Route: IVP; Site: left antecubital; 20:16 Follow up: Response: No adverse reaction me1 20:03 Drug: NS 0.9% IV 1000 ml IV at 1 bolus Per protocol; to be given as a bolus over 60 me1 minutes Route: IV; Rate: 1 bolus; Site: left antecubital; 20:39 Follow up: Response: No adverse reaction; IV Status: Completed infusion; IV Intake: me1 1000ml 20:15 Drug: metoCLOPramide IVP 10 mg IVP once; over 1 to 2 minutes Route: IVP; Site: left me1 antecubital; 20:39 Follow up: Response: No adverse reaction; Nausea is decreased me1 20:39 Drug: NS 0.9% IV 1000 ml IV at 100 ml/hr once; to be given at 100 ml/hour Route: IV; me1 Rate: 100 ml/hr; Site: left antecubital; 22:25 Follow up: Response: No adverse reaction; IV Status: Completed infusion bm8 22:00 Drug: Promethazine IM 25 mg IM once Route: IM; Site: left deltoid; me1 22:24 Follow up: Response: No adverse reaction bm8 23:08 Drug: LORazepam PO 1 mg PO once Route: PO; bm8 23:52 Follow up: Response: No adverse reaction zm Medication: 19:40 VIS not applicable for this client. me1 Intake: 20:39 IV: 1000ml; Total: 1000ml. me1 Outcome: 23:08 ER care complete, transfer ordered by MD. patel 11/24 00:43 Transferred by ground EMS to [facility], Transfer form completed. bm8 X-rays sent w/ patient. Condition: stable Instructed on follow up and referral plans. the need for transfer, Demonstrated understanding of instructions, follow-up care, medications, 00:44 Patient left the ED. bm8 Signatures: Dispatcher [employer] EDMS Edyta Aj, RN RN Arslan Hernandez MD MD sp4 Milagro Butterfield RN RN me1 Yoli Bashir Brad RN RN bm8 Shaw Jiang jc4 Corrections: (The following items were deleted from the chart) 11/23 20:05 19:59 T4 FREE+C.LAB.BRZ [place] and [place] [facility] [place] 20:05 19:59 THYROID STIMULAT HORMONE+C.LAB.BRZ drawn and [place]. [facility] [place] 22:28 22:18 GI: Reports nausea, vomiting, bm8 bm8
[2024-11-24 00:48] LABS: Hepatitis B surface AG Interp. Nonreactive (Nonreactive)
[2024-11-24 00:49] LABS: HBsAG Nonreactive Report Report
[2024-11-24 01:15] VITALS: BP 126/66; TEMP 98.5; O2SAT 97
== END 2024-11-24 00:44 | disposition short-term general hospital (02) ==
LOC: ER 19:34
DX: K75.4 Autoimmune hepatitis (principal); R11.2 Nausea with vomiting, unspecified; Z11.52 Encounter for screening for COVID-19
CPT/HCPCS: 96361; 93005; 85025; 36415; 84443; 81003; 84484; 84439; 83690; 80053; 80074; 74177; 76705; 96375; 96372; 96374; 99285; 87428; Q9967; J2550; J2765; J2405; J7030 ×2